=== PATIENT | male | born 1975 | race African-American/Black ===

== ENCOUNTER 2017-11-20 08:46 | Emergency (ER) | payer OTHER ==
[~2017-11-20] VITALS: Ht 172.7 cm; Wt 81.7 kg
[2017-11-20 08:49] VITALS: BP 146/97
[2017-11-20] MEDS ORDERED: IBUPROFEN 600600 M1 PO (09:14)
[2017-11-20] MEDS ORDERED: AMOXICILLIN500 M1 PO (09:14)
== END 2017-11-20 09:37 | disposition home or self-care (01) ==
LOC: ER 08:46
DX: J06.9 Acute upper respiratory infection, unspecified (principal); F17.210 Nicotine dependence, cigarettes, uncomplicated

== ENCOUNTER 2019-03-19 10:56 | Emergency (ER) | payer OTHER ==
[~2019-03-19] VITALS: Ht 175.3 cm; Wt 88.9 kg
[~2019-03-19 10:56] MED LIST: AMOXICILLIN500 M1 PO; IBUPROFEN 600600 M1 PO
[2019-03-19] MEDS ORDERED: KEFLEX500 M1 PO (12:04)
[2019-03-19] MEDS ORDERED: NORCO 5-325 TA1 EACH PO (12:46)
[2019-03-19 12:54] VITALS: BP 120/87
== END 2019-03-19 12:55 | disposition home or self-care (01) ==
LOC: ER 10:56
DX: S62.637B Displaced fracture of distal phalanx of left little finger, initial encounter for open fracture (principal); F17.210 Nicotine dependence, cigarettes, uncomplicated; W22.8XXA Striking against or struck by other objects, initial encounter; Y93.89 Activity, other specified; Y92.89 Other specified places as the place of occurrence of the external cause; Y99.8 Other external cause status